=== PATIENT | male | born 1970 | race Hispanic/Latino ===

== ENCOUNTER 2016-12-06 19:36 | Emergency (ER) | payer MEDICAID, OTHER ==
[2016-12-06 19:47] VITALS: BP 157/96; PULSE 71; RESP 16; TEMP 98; O2SAT 98
--- NOTE | 2016-12-06 20:54 | ED PDOC ---
HPI: General Adult Time Seen by Provider: 12/06/16 19:49 Chief Complaint (Nursing): Medical Clearance Chief Complaint (Provider): Medical and Psychiatric Clearance History Per: Patient, Other ([place] ) History/Exam Limitations: no limitations Onset/Duration Of Symptoms: Other (chronic back pain) Current Symptoms Are (Timing): Still Present Severity: Moderate Additional Complaint(s): 46 year old male with a pertinent medical history of seizures, chronic back pain, and heroin use is brought into the ED by [facility] for a medical and psychiatric evaluation prior to incarceration. He is requesting medication for chronic back pain and did not take his Tegretol medication today and is concerned for seizure development. He denies having a fever, cough, nausea, vomiting, diarrhea, chest pain, and shortness of breath. Past Medical History Reviewed: Historical Data, Nursing Documentation, Vital Signs Vital Signs: Last Vital Signs Temp 98 F 12/06/16 19:41 Pulse 71 12/06/16 19:41 Resp 16 12/06/16 19:41 BP 157/96 H 12/06/16 19:41 Pulse Ox 98 12/06/16 21:00 - Medical History PMH: Anxiety, Bronchitis, COPD, Depression, Gastritis, HTN, Seizures - Surgical History Surgical History: No Surg Hx - Family History Family History: States: Unknown Family Hx - Social History Current smoker - smoking cessation education provided: Yes Alcohol: Other (yes) Drugs: Other (heroin) - Immunization History Hx Tetanus Toxoid Vaccination: Yes Hx Influenza Vaccination: Yes Hx Pneumococcal Vaccination: No - Home Medications Home Medications: Ambulatory Orders Medication Instructions Recorded Penicillin VK [Pen-Vee K] 2 tab PO BID #28 tab 11/04/16 carBAMazepine [TEGretol-XR] 400 mg PO DAILY 11/04/16 traMADol/Acetaminophen [Ultracet 1 tab PO TID PRN #20 tab 11/04/16 37.5/325 mg] carBAMazepine [TEGretol-XR] 200 mg PO BID #14 ter 12/06/16 - Allergies Allergies/Adverse Reactions: Allergies Allergy/AdvReac Type Severity Reaction Status Date / Time No Known Allergies Allergy Verified 12/06/16 19:41 Review of Systems ROS Statement: Except As Marked, All Systems Reviewed And Found Negative Constitutional: Negative for: Fever, Chills Cardiovascular: Negative for: Chest Pain Respiratory: Negative for: Cough, Shortness of Breath Gastrointestinal: Negative for: Nausea, Vomiting, Diarrhea Musculoskeletal: Positive for: Back Pain (chronic) Psych: Negative for: Suicidal ideation (no homicidal ideations) Physical Exam - Reviewed Nursing Documentation Reviewed: Yes Vital Signs Reviewed: Yes - Physical Exam Appears: Positive for: Well, Non-toxic, No Acute Distress Head Exam: Positive for: ATRAUMATIC, NORMOCEPHALIC Skin: Positive for: Normal Color, Warm, Dry Eye Exam: Positive for: Normal appearance ENT: Positive for: Other (poor dentition) Neck: Positive for: Normal Cardiovascular/Chest: Positive for: Regular Rate, Rhythm Respiratory: Positive for: Normal Breath Sounds. Negative for: Respiratory Distress Back: Positive for: Normal Inspection. Negative for: Vertebral Tenderness Neurologic/Psych: Positive for: Alert, Oriented (3x) - ECG O2 Sat by Pulse Oximetry: 98 (RA) Pulse Ox Interpretation: Normal Medical Decision Making Medical Decision Makin:49 Initial impression: 46 year old male brought to the ED for medical and psychiatric evaluation and tegretol. Initial plan: * tegretol-XR 200mg PO * tylenol 650mg PO * crisis evaluation * reevaluation 20:30 Patient is evaluated by crisis, cleared and stable for discharge. Scribe Attestation: Documented by Yoanna Tsang, acting as a scribe for Walter Rehman MD. Provider Scribe Attestation: All medical record entries made by the Scribe were at my direction and personally dictated by me. I have reviewed the chart and agree that the record accurately reflects my personal performance of the history, physical exam, medical decision making, and the department course for this patient. I have also personally directed, reviewed, and agree with the discharge instructions and disposition. Disposition - Clinical Impression Clinical Impression: Seizure disorder, Heroin abuse - Disposition Disposition Time: 20:30 Condition: STABLE Additional Instructions: Patient is medically and psychiatrically stable for incarceration Prescriptions: carBAMazepine [TEGretol-XR] 200 mg PO BID #14 ter Instructions: Epilepsy (ED)
== END 2016-12-06 22:44 ==
LOC: H.ER 19:36
DX: M54.9 Dorsalgia, unspecified (principal); Z86.69 Personal history of other diseases of the nervous system and sense organs; F11.20 Opioid dependence, uncomplicated

== ENCOUNTER 2017-01-29 09:57 | Emergency (ER) | payer MEDICAID, OTHER ==
[2017-01-29 10:00] VITALS: BMI 20.5
[2017-01-29 10:02] VITALS: BP 103/65; PULSE 105; RESP 18; TEMP 97.8; O2SAT 96
--- NOTE | 2017-01-29 10:25 | ED PDOC ---
HPI: CCC, URI, Sore Throat Time Seen by Provider: 01/29/17 10:14 Chief Complaint (Provider): Cough History Per: Patient History/Exam Limitations: no limitations Have you had recent travel within the past 21 days to any of the following countries: [place], [place], [place] or [place]?: No Onset/Duration Of Symptoms: Days Current Symptoms Are (Timing): Still Present Additional Complaint(s): Cough, nasal congestion. No dyspnea. No fever. Has bodyaches. No chest pain. No headaches. Has runny nose. No abd pain, nausea, vomit, diarrhea. No dysuria. No leg pain. Taking his seizure meds. Past Medical History Reviewed: Nursing Documentation, Vital Signs Vital Signs: Last Vital Signs Temp 97.8 F 01/29/17 10:00 Pulse 105 H 01/29/17 10:00 Resp 18 01/29/17 10:00 BP 103/65 01/29/17 10:00 Pulse Ox 96 01/29/17 10:00 - Medical History PMH: Anxiety, Bronchitis, COPD, Depression, Gastritis, HTN, Seizures - Surgical History Surgical History: No Surg Hx - Family History Family History: States: Unknown Family Hx - Social History Current smoker - smoking cessation education provided: No Alcohol: None Drugs: Denies - Immunization History Hx Tetanus Toxoid Vaccination: Yes Hx Influenza Vaccination: Yes Hx Pneumococcal Vaccination: No - Home Medications Home Medications: Ambulatory Orders Medication Instructions Recorded carBAMazepine [TEGretol-XR] 200 mg PO BID #14 ter 12/06/16 carBAMazepine [TEGretol] 200 mg PO BID #14 tab 12/27/16 Ibuprofen [Motrin] 600 mg PO TID 7 Days 01/29/17 - Allergies Allergies/Adverse Reactions: Allergies Allergy/AdvReac Type Severity Reaction Status Date / Time No Known Allergies Allergy Verified 12/27/16 17:48 Review of Systems Constitutional: Negative for: Fever, Weakness Eyes: Negative for: Vision Change ENT: Positive for: Nose Pain, Nose Discharge, Nose Congestion. Negative for: Mouth Pain, Mouth Swelling, Throat Pain Cardiovascular: Negative for: Chest Pain, Palpitations, Light Headedness Respiratory: Positive for: Cough, Sputum. Negative for: Shortness of Breath, Hemoptysis, Pleuritic Pain, Wheezing Gastrointestinal: Negative for: Nausea, Vomiting, Abdominal Pain, Diarrhea Musculoskeletal: Positive for: Other (bodyaches) Skin: Negative for: Rash Neurological: Negative for: Weakness, Numbness Physical Exam - Reviewed Nursing Documentation Reviewed: Yes Vital Signs Reviewed: Yes - Physical Exam Appears: Positive for: Non-toxic, No Acute Distress Head Exam: Positive for: ATRAUMATIC, NORMAL INSPECTION, NORMOCEPHALIC Skin: Positive for: Normal Color, Warm, DRY Eye Exam: Positive for: EOMI, Normal appearance, PERRL ENT: Positive for: Nasal Congestion. Negative for: Pharyngeal Erythema, Tonsillar Exudate Neck: Positive for: Normal, Painless ROM, Supple Cardiovascular/Chest: Positive for: Regular Rate, Rhythm Respiratory: Positive for: CNT, Normal Breath Sounds Gastrointestinal/Abdominal: Positive for: Normal Exam, Bowel Sounds, Soft. Negative for: Tenderness Back: Positive for: Normal Inspection. Negative for: L CVA Tenderness, R CVA Tenderness Extremity: Positive for: Normal ROM. Negative for: Tenderness, Pedal Edema Neurologic/Psych: Positive for: Alert, Oriented - ECG O2 Sat by Pulse Oximetry: 96 Pulse Ox Interpretation: Normal - Progress ED Course And Treament: 1028: Stable. AAOx3. Pain free. Tolerated PO. Disposition - Clinical Impression Clinical Impression: URI, acute - Patient ED Disposition Is Patient to be Admitted: No Counseled Patient/Family Regarding: Studies Performed, Diagnosis, Need For Followup, Rx Given - Disposition Referrals: [facility] [Outside] - 01/30/17 Disposition: Routine/Home Disposition Time: 10:30 Condition: STABLE Additional Instructions: Return if not better in 3 days. Prescriptions: Ibuprofen [Motrin] 600 mg PO TID 7 Days Instructions: Upper Respiratory Infection (ED)
[2017-01-29] MEDS ORDERED: Iohexol 240 (50 ml) ONE (15:28)
== END 2017-01-29 11:15 | disposition home or self-care (01) ==
LOC: H.ER 09:57
DX: J06.9 Acute upper respiratory infection, unspecified (principal); F41.9 Anxiety disorder, unspecified; I10 Essential (primary) hypertension

== ENCOUNTER 2017-07-11 18:25 | Emergency (ER) | payer MEDICAID ==
[2017-07-11 18:26] VITALS: BMI 20.5
[2017-07-11 18:40] VITALS: BP 106/81; PULSE 82; RESP 16; TEMP 98; O2SAT 100
--- NOTE | 2017-07-11 18:54 | ED PDOC ---
HPI: General Adult Time Seen by Provider: 07/11/17 18:46 Chief Complaint (Nursing): Medical Clearance Chief Complaint (Provider): None History Per: Patient History/Exam Limitations: no limitations Additional Complaint(s): Pt reports heroin use, not on a daily basis. Pt was seen in [facility] ER after using heroin. Pt denies heroin use between discharge from [facility] and being arrested. Pt denies complaints. PT denies SI/HI. Pt calm and cooperative in ER. Pt reports history of epilepsy and states he takes his medication everyday, including today. Past Medical History Reviewed: Historical Data, Nursing Documentation, Vital Signs Vital Signs: Last Vital Signs Temp 98.0 F 07/11/17 18:39 Pulse 82 07/11/17 18:39 Resp 16 07/11/17 18:39 BP 106/81 07/11/17 18:39 Pulse Ox 100 07/11/17 18:54 - Medical History PMH: Anxiety, Bronchitis, COPD, Depression, Gastritis, HTN, Seizures - Surgical History Surgical History: No Surg Hx - Family History Family History: States: Unknown Family Hx - Living Arrangements Living Arrangements: With Family - Social History Current smoker - smoking cessation education provided: No Alcohol: None Drugs: Denies - Immunization History Hx Tetanus Toxoid Vaccination: No Hx Influenza Vaccination: No Hx Pneumococcal Vaccination: No - Home Medications Home Medications: Ambulatory Orders Medication Instructions Recorded No Known Home Med 07/11/17 - Allergies Allergies/Adverse Reactions: Allergies Allergy/AdvReac Type Severity Reaction Status Date / Time No Known Allergies Allergy Verified 07/11/17 13:37 Review of Systems ROS Statement: Except As Marked, All Systems Reviewed And Found Negative Constitutional: Negative for: Fever, Chills Gastrointestinal: Negative for: Nausea, Vomiting, Abdominal Pain Psych: Negative for: Depression, Psychosis, Suicidal ideation Physical Exam - Reviewed Nursing Documentation Reviewed: Yes Vital Signs Reviewed: Yes - Physical Exam Appears: Positive for: Well, Non-toxic, No Acute Distress Head Exam: Positive for: ATRAUMATIC, NORMAL INSPECTION, NORMOCEPHALIC Skin: Positive for: Normal Color, Warm, DRY Eye Exam: Positive for: EOMI, Normal appearance, PERRL ENT: Positive for: Normal ENT Inspection Neck: Positive for: Normal, Painless ROM Cardiovascular/Chest: Positive for: Regular Rate, Rhythm Respiratory: Positive for: CNT, Normal Breath Sounds Back: Positive for: Normal Inspection Extremity: Positive for: Normal ROM Neurologic/Psych: Positive for: Alert, Oriented - ECG O2 Sat by Pulse Oximetry: 100 Pulse Ox Interpretation: Normal Disposition - Clinical Impression Clinical Impression: Normal exam - Patient ED Disposition Is Patient to be Admitted: No - Disposition Disposition: Routine/Home Disposition Time: 18:53 Condition: GOOD Additional Instructions: PT is medically and psychiatrically stable for incarceration. Instructions: Normal Exam (ED) Forms: [employer] (Mongolian)
== END 2017-07-11 19:06 | disposition home or self-care (01) ==
LOC: H.ER 18:25
DX: F32.9 Major depressive disorder, single episode, unspecified; F41.9 Anxiety disorder, unspecified; G40.909 Epilepsy, unspecified, not intractable, without status epilepticus; I10 Essential (primary) hypertension; J44.9 Chronic obstructive pulmonary disease, unspecified

== ENCOUNTER 2017-10-07 19:22 | Emergency (ER) | payer SELFPAY ==
[2017-10-07 19:22] VITALS: BMI 20.5
[2017-10-07 19:31] VITALS: RESP 18; TEMP 98.1; O2SAT 99
[2017-10-07] MEDS ORDERED: Alum-Mag Hydrox-Simethicone Susp (30 mL) PO STA (20:37)
--- NOTE | 2017-10-07 20:43 | ED PDOC ---
HPI: General Adult Time Seen by Provider: 10/07/17 20:39 Chief Complaint (Nursing): Medical Clearance Chief Complaint (Provider): clearance for incarceration History Per: Patient History/Exam Limitations: no limitations Additional Complaint(s): 47 y/o male here in police custody for clearance for incarceration. Patient states he ran out of his seizure medication and did not take his dose today. Admits to heroin use, last used today. Denies headache, dizziness, extremity numbness/weakness. Patient denies suicidal/homicidal ideations. Past Medical History Reviewed: Historical Data, Nursing Documentation, Vital Signs Vital Signs: Last Vital Signs Temp 98.1 F 10/07/17 19:25 Pulse 90 10/07/17 19:25 Resp 18 10/07/17 19:25 BP 153/99 H 10/07/17 19:25 Pulse Ox 99 10/07/17 20:44 - Medical History PMH: Anxiety, Bronchitis, COPD, Depression, Gastritis, HTN, Seizures - Surgical History Surgical History: No Surg Hx - Family History Family History: States: Unknown Family Hx - Living Arrangements Living Arrangements: Alone - Social History Current smoker - smoking cessation education provided: Yes SMOKER/PACKS PER DAY:: 1 Alcohol: None Drugs: Opiates - Immunization History Hx Tetanus Toxoid Vaccination: No Hx Influenza Vaccination: No Hx Pneumococcal Vaccination: No - Home Medications Home Medications: Ambulatory Orders Medication Instructions Recorded TEGretol 07/17/17 carBAMazepine [TEGretol] 200 mg PO BID #30 tab 10/08/17 - Allergies Allergies/Adverse Reactions: Allergies Allergy/AdvReac Type Severity Reaction Status Date / Time No Known Allergies Allergy Verified 07/11/17 13:37 Review of Systems ROS Statement: Except As Marked, All Systems Reviewed And Found Negative Physical Exam - Reviewed Nursing Documentation Reviewed: Yes Vital Signs Reviewed: Yes - Physical Exam Appears: Positive for: Well, Non-toxic, No Acute Distress Head Exam: Positive for: ATRAUMATIC, NORMAL INSPECTION, NORMOCEPHALIC Skin: Positive for: Normal Color Eye Exam: Positive for: Normal appearance ENT: Positive for: Normal ENT Inspection Cardiovascular/Chest: Positive for: Regular Rate, Rhythm Respiratory: Positive for: Normal Breath Sounds Gastrointestinal/Abdominal: Positive for: Normal Exam Back: Positive for: Normal Inspection Extremity: Positive for: Normal ROM Neurologic/Psych: Positive for: Alert, Oriented. Negative for: Motor/Sensory Deficits - ECG O2 Sat by Pulse Oximetry: 99 - Progress ED Course And Treament: Patient evaluated by grain elevator worker and cleared for discharge as per Dr. Stock Rx Tegretol provided (dose given in ED) Disposition - Clinical Impression Clinical Impression: Adjustment disorder, Medication refill - Patient ED Disposition Is Patient to be Admitted: No Counseled Patient/Family Regarding: Diagnosis, Need For Followup, Rx Given - Disposition Disposition: Routine/Home Disposition Time: 00:24 Condition: STABLE Additional Instructions: Patient medically and psychiatrically cleared for incarceration Prescriptions: carBAMazepine [TEGretol] 200 mg PO BID #30 tab Instructions: Adjustment Disorder, Carbamazepine
[2017-10-07] MEDS ORDERED: carBAMazepine Chew Tab 100 MG Chew Tab ONE (21:01)
[2017-10-07] MEDS ORDERED: Alum-Mag Hydrox-Simethicone Susp (30 mL) ONE (21:01)
[2017-10-08 01:21] VITALS: BP 116/57; PULSE 55
== END 2017-10-08 01:21 | disposition home or self-care (01) ==
LOC: H.ER 19:22
DX: Z76.0 Encounter for issue of repeat prescription (principal); F43.22 Adjustment disorder with anxiety